=== PATIENT | female | born 1965 | race African-American/Black ===

== ENCOUNTER → 2020-03-30 | Outpatient (CLI) | payer MEDICARE, MEDICAID ==
[2015-03-29 09:50] VITALS: BP 117/80
--- NOTE | 2020-03-30 17:48 | RAD ---
DATE: 03/30/2020 9:10 AM EXAM: MAMMO CAT SCREENING BILATERAL HISTORY: Screening COMPARISON: 01/30/2017, 01/28/2019 Bilateral CC and MLO views of the breasts were performed. Bilateral breast tomosynthesis was performed in CC and MLO projections. This study was interpreted with the benefit of Computerized Aided Detection (CAD). FINDINGS: Breast Density: FATTY The Breast Parenchyma is primarily fatty replaced. Breast parenchyma level density A. No suspicious masses, microcalcifications or architectural distortion is present to suggest malignancy in either breast. The visualized axillae are unremarkable. IMPRESSION: No mammographic evidence of malignancy. BI-RADS CATEGORY: 1 NEGATIVE RECOMMENDED FOLLOW-UP: 12M 12 MONTH FOLLOW-UP Annual screening mammography is recommended, unless clinically indicated sooner based on symptoms or change in physical exam. PQRS compliance statement: Patient information was entered into a reminder system with a target due date for the next mammogram. Mammography is a sensitive method for finding small breast cancers, but it does not detect them all and is not a substitute for careful clinical examination. A negative mammogram does not negate a clinically suspicious finding and should not result in delay in biopsying a clinically suspicious abnormality. "Our facility is accredited by the [employer] Mammography [employer]."
== END | disposition home or self-care (01) ==
LOC: MAMMO 09:00
PROVIDERS: ATTEND Family Medicine
DX: Z12.31 Encounter for screening mammogram for malignant neoplasm of breast (principal)
CPT/HCPCS: 77063; 77067

== ENCOUNTER → 2020-10-22 | Outpatient (CLI) | payer MEDICARE, MEDICAID ==
[2015-03-29 09:50] VITALS: BP 117/80
== END ==
LOC: LAB 08:57
PROVIDERS: ATTEND Nurse Anesthetist, Certified Registered
DX: Z01.812 Encounter for preprocedural laboratory examination (principal); Z20.822 Contact with and (suspected) exposure to COVID-19
CPT/HCPCS: U0003

== ENCOUNTER → 2020-10-26 | Day surgery (SDC) | payer MEDICARE, MEDICAID ==
[~2020-10-26] MED LIST: IPRATRPIUM/ALBUTEROL 0.5/2.5MG 3 ML NEBU. NEB PRN; IV RINGERS SOLUTION,LACTATED 1,000 ML IV SCH; LIDOCAINE 2% PF 5 ML VIAL. ONE; LISI1TAB37 PO; METF500T16 PO; MIDAZOLAM HCL PF 2 MG/2 ML VIAL. IV ONE; OLAN20TA3 PO; ONDANSETRON PF 4 MG/2 ML VIAL. IV PRN; PROPOFOL 10,000 MCG/ML (20ML) VIAL IV ONE; SIMV20TA18 PO
--- NOTE | 2020-10-26 09:23 | NUR ---
patient concerned about blood sugar, measured finger stick, result 80. patient requested juice, gave apple juice.
[2020-10-26 09:33] VITALS: BP 122/85
--- NOTE | 2020-11-01 14:07 | PATHOLOGY ---
[facility] Accession Number: [id number] . 01 Material submitted: . colon - RANDOM COLON BIOPSY . 01 Clinical history: . PRE-OPERATIVE DIAGNOSIS - SCREENING OPERATIVE PROCEDURE - COLONOSCOPY PREVIOUS VISIT PRINT DX: ENCOUNTER SCREENING MAMMOGRAM FOR MALIGNANT NEOPLASM OF BREAST . 02 Diagnosis: Colonic mucosa, random colon biopsies: - Active chronic colitis, mild to moderate, patchy. See comment. (JPM:[facility] 11/01/2020) P 11/01/2020 1157 Local . 02 Comment: Sections of the random colon biopsy reveal multiple segments of colonic mucosa. Some of the segments of colonic mucosa show mild to moderate active chronic inflammation with foci of acute cryptitis and crypt architectural distortion. There are no granulomas. The remaining segments of colonic mucosa appear relatively normal. The findings are suggestive of idiopathic chronic inflammatory bowel disease having a patchy distribution. There is no dysplasia or evidence of malignancy. (JPM:[facility] 11/01/2020) . 02 Electronically signed: . Jacob Patrick MD, Pathologist NPI- [id number] . 01 Gross description: . The specimen is received in formalin, labeled with the patient's name and "random colon BX" and consists of multiple fragments of araiza tissue measuring 1.5 x 0.8 x 0.4 cm in aggregate which are entirely submitted in A1. (SDY; 10/29/2020) SYU/SYU 10/29/2020 1044 Local . 02 Pathologist provided ICD-10: K52.9 . 02 CPT . 448267 Specimen Comment: Report sent to Performed at: [address], [place], [place] [id number] MD Jhony Santana MD Phone: [phone] Performed at: 02 [facility] [address] [place], [place] [id number] MD Jacob Patrick MD Phone: [phone]
== END | disposition home or self-care (01) ==
LOC: SURG 06:56
PROVIDERS: ATTEND Emergency Medicine
DX: Z12.11 Encounter for screening for malignant neoplasm of colon (principal); K52.9 Noninfective gastroenteritis and colitis, unspecified; K63.89 Other specified diseases of intestine; E11.9 Type 2 diabetes mellitus without complications; F31.9 Bipolar disorder, unspecified; E78.00 Pure hypercholesterolemia, unspecified; F41.9 Anxiety disorder, unspecified; E66.9 Obesity, unspecified; I10 Essential (primary) hypertension; Z80.0 Family history of malignant neoplasm of digestive organs; Z79.899 Other long term (current) drug therapy; Z88.8 Allergy status to other drugs, medicaments and biological substances; Z79.84 Long term (current) use of oral hypoglycemic drugs
CPT/HCPCS: 45380; 82947; J2001; J2704; J7120

== ENCOUNTER → 2021-01-04 | Outpatient (CLI) | payer MEDICARE, MEDICAID ==
[2020-10-26 09:33] VITALS: BP 122/85
[~2021-01-04] MED LIST changes: -IPRATRPIUM/ALBUTEROL 0.5/2.5MG 3 ML NEBU. NEB PRN; -IV RINGERS SOLUTION,LACTATED 1,000 ML IV SCH; -LIDOCAINE 2% PF 5 ML VIAL. ONE; -MIDAZOLAM HCL PF 2 MG/2 ML VIAL. IV ONE; -ONDANSETRON PF 4 MG/2 ML VIAL. IV PRN; -PROPOFOL 10,000 MCG/ML (20ML) VIAL IV ONE
--- NOTE | 2021-01-04 14:09 | CARD ---
MR#: [id number] Date of Study: 01/04/2021 Ordering Physician: MELANIE BESS, Referring Physician: MELANIE BESS, Tech: Ashleigh Carlson [facility] APPROVED REPORT EXAM: Two-dimensional and M-mode echocardiogram with Doppler and color Doppler. Other Information HR: 60bpm INDICATION Tachycardia RISK FACTORS Hypertension Hyperlipidemia 2D DIMENSIONS RVDd3.3 (2.9-3.5cm)Left Atrium(2D)2.5 (1.6-4.0cm) IVSd1.3 (0.7-1.1cm)Aortic Root(2D)3.1 (2.0-3.7cm) LVDd3.9 (3.9-5.9cm)LVOT Diameter2.0 (1.8-2.4cm) PWd1.0 (0.7-1.1cm)LVDs3.1 (2.5-4.0cm) FS (%) 19.9 %SV26.9 ml LVEF(%)49.4 (>50%) Aortic Valve AoV Peak Bakari.135.9cm/sAoV VTI21.3cm AO Peak GR.7.4mmHgLVOT Peak Bakari.89.8cm/s LVOT VTI 18.54cmAO Mean GR.4mmHg MONI (VMAX)2.92kp7OZB (VTI)2.74cm2 Mitral Valve MV E Bedsuixn22.9cm/sMV DECEL UYDL642ca MV A Kxixlqro58.0cm/sE/A Ratio0.6 Pulmonary Valve PV Peak Atmhqblu19.2cm/sPV Peak Grad.3mmHg Tricuspid Valve TR P. Ycbmchij080hz/sRAP UKSONNBM8joEu TR Peak Gr.28omEwPOYU21nxId Pulmonary Vein S1 Jupsebpt20.8cm/sD2 Ncjjozqq59.7cm/s LEFT VENTRICLE The left ventricle is normal size. There is mild concentric left ventricular hypertrophy. The left ve ntricular systolic function is normal. The Ejection Fraction is 55%. There is normal LV segmental wal l motion. Transmitral Doppler flow pattern is Grade I-abnormal relaxation pattern. RIGHT VENTRICLE The right ventricle is normal size. There is normal right ventricular wall thickness. The right ventr icular systolic function is normal. ATRIA The left atrium size is normal. The right atrium size is normal. The interatrial septum is intact wit h no evidence for an atrial septal defect or patent foramen ovale as noted on 2-D or Doppler imaging. AORTIC VALVE The aortic valve is normal in structure and function. Doppler and Color Flow revealed no significant aortic regurgitation. There is no significant aortic valvular stenosis. Calculated aortic valve area is 3.1 cm2 with maximum pressure gradient of 8 mmHg and mean pressure gradient of 4 mmHg. MITRAL VALVE The mitral valve is normal in structure and function. There is no evidence of mitral valve prolapse. There is no mitral valve stenosis. Doppler and Color Flow revealed no mitral valve regurgitation note d. TRICUSPID VALVE The tricuspid valve is normal in structure and function. Doppler and Color Flow revealed trace tricus pid regurgitation with an estimated PAP of 18 mmHg. There is no tricuspid valve stenosis. PULMONIC VALVE The pulmonary valve is normal in structure and function. Doppler and Color Flow revealed trace pulmon ic valvular regurgitation. GREAT VESSELS The aortic root is normal in size. The ascending aorta is normal in size. The IVC is normal in size a nd collapses >50% with inspiration. PERICARDIAL EFFUSION There is no evidence of significant pericardial effusion. Critical Notification Critical Value: No <Conclusion> The left ventricular systolic function is normal. The Ejection Fraction is 55%. There is normal LV segmental wall motion. Transmitral Doppler flow pattern is Grade I-abnormal relaxation pattern. Trace tricuspid regurgitation with an estimated PAP of 18 mmHg. There is no evidence of significant pericardial effusion. Signed by : Michael Marinelli, Electronically Approved : 01/04/2021 14:08:39
== END ==
LOC: ECHO 10:30
PROVIDERS: ATTEND Internal Medicine Cardiovascular Disease
DX: I51.7 Cardiomegaly (principal); R00.0 Tachycardia, unspecified
CPT/HCPCS: 93306

== ENCOUNTER → 2021-04-01 | Outpatient (CLI) | payer MEDICARE, MEDICAID ==
[2020-10-26 09:33] VITALS: BP 122/85
--- NOTE | 2021-04-01 15:04 | RAD ---
EXAM: BILATERAL DIGITAL 3D SCREENING MAMMOGRAPHY. HISTORY: Routine mammographic screening. TECHNIQUE: Bilateral digital 3D and tomographic images were obtained in CC and MLO projections. Compu ter-aided detection was applied. COMPARISON: 03/30/2020, 01/28/2019, 01/30/2017. COMPOSITION: B. There are scattered areas of fibroglandular density. FINDINGS: There are no suspicious masses, microcalcifications or architectural distortion. The parenc hymal pattern is stable. Scattered calcifications are benign. BI-RADS CATEGORY 2: Benign. RECOMMENDATION: 1. Routine screening mammography in one year. If mammography demonstrates dense breast tissue (heterogenously dense or extremely dense, category C or D), which could hide abnormalities, and if other risk factors for breast cancer have been identifi ed, supplemental screening tests that may be suggested by the ordering physician may be of benefit. D ense breast tissue, in and of itself, is a relatively common condition. Therefore, this information i s not provided to cause undue concern, but rather to raise awareness and to promote discussion with t he referring physician regarding the presence of other risk factors, in addition to dense breast tiss ue. The results of this mammography examination is provided to the patient and referring physician. T he patient should contact their referring physician if any questions or concerns exist regarding this report. PQRS compliance statement - Patient information was entered into a reminder system with a target due date for the next mammogram. "Our facility is accredited by the [employer] Mammography [employer]." Electronically signed by: Waqar Mac MD (04/01/2021 3:02 PM) [id number]
== END ==
LOC: MAMMO 07:25
PROVIDERS: ATTEND Family Medicine
DX: Z12.31 Encounter for screening mammogram for malignant neoplasm of breast (principal)
CPT/HCPCS: 77063; 77067